=== PATIENT | male | born 1960 | race Caucasian/White ===

== ENCOUNTER 2024-04-02 13:35 | Outpatient (CLI) | payer SELFPAY ==
--- NOTE | ~2024-04-02 | XR_ITS ---
XR cervical spine min 6V Ordering provider: Bebeto Geovanny Zia History: . Neck pain following fall . Comparison: None. FINDINGS: VERTEBRAL BODIES: Normal height and alignment. No visible fracture or subluxation. The dens is intact . Degenerative changes of the spine. Kissing osteophytes seen anteriorly. DISK SPACES: Well maintained. 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 PARASPINOUS SOFT TISSUES: No prevertebral soft tissue swelling. IMPRESSION: No acute osseous abnormality cervical spine. Reviewed, dictated and finalized at location A. [employer]
== END 2024-04-02 13:36 | disposition home or self-care (01) ==
DX: M54.2 Cervicalgia (principal); W19.XXXA Unspecified fall, initial encounter
CPT/HCPCS: 72052